=== PATIENT | female | born 1960 | race Caucasian/White ===

== ENCOUNTER → 2017-03-31 | Day surgery (SDC) | payer OTHER ==
[~2017-03-31] MED LIST: BUPROPION XL150 MG PO; HYDROCHLOROTHIA25 MG PO; LIPITOR20 MG PO; LOSARTAN POTASS50 MG PO; MAPAP ARTHRITI650 M1 PO; MOBIC15 MG PO; NEURONTIN300 MG PO; OMEPRAZOLE40 M1 PO; ZYRTEC10 M1 PO
--- NOTE | ~2017-03-31 | OR ---
Unit #: [id number] #: [id number] Patient: ANTHONY BENEDICT [id number] [address] [address] [id number] O MR#: [id number] NAME: ANTHONY BENEDICT ROOM: Date of Procedure: 03/31/2017 Admission Date: 03/31/2017 Surgeon: Tez Gtz M.D. : 1960 Attending Physician: Tez Gtz M.D. OPERATIVE REPORT JOB NOTE: CC: DR. JAZMIN FARIA PREOPERATIVE DIAGNOSIS Hemoccult-positive stools. POSTOPERATIVE DIAGNOSIS Hemoccult-positive stools. PROCEDURES PERFORMED 1. Esophagogastroduodenoscopy. 2. Biopsy of antrum for Helicobacter pylori testing. 3. Attempted colonoscopy to proximal ascending colon. ANESTHESIA Monitored anesthesia care. FINDINGS The patient was found to have moderate duodenitis and distal gastritis on upper endoscopy. The patient was found to have a long tortuous colon; however, we were unable to enter the cecum. The patient had moderate internal hemorrhoids. Lax GE junction. SPECIMENS Sent to pathology. COMPLICATIONS None apparent. CONDITION The patient tolerated the procedure well. INDICATIONS FOR PROCEDURE The patient is a 57-year-old white female, who presents at this time for evaluation by upper and lower endoscopy. She was recently found to have Hemoccult-positive stools. DESCRIPTION OF PROCEDURE After obtaining informed consent, the patient was brought to the endoscopy suite and after adequate monitored anesthesia care, had the endoscope placed through the mouth into the upper esophagus under direct vision. It was advanced to the second portion of the duodenum without difficulty with the lumen always in view. The third portion of the duodenum was normal. Unit #: [id number] #: [id number] Patient: ANTHONY BENEDICT The second portion of the duodenum and duodenal bulb had moderate duodenitis, but no ulcerations were seen. The pylorus was opened normally. There was some moderate diffuse distal gastritis present. A biopsy was obtained for Helicobacter pylori testing. On retroflexion back to the GE junction, there was a lax GE junction. No other abnormalities were found in the proximal third, middle third, or incisura. On pulling back above the GE junction, there was no stenosis, stricture, or neoplasm seen. There was no significant esophagitis. The remaining portion of the esophagus was within normal limits. Laryngeal structures were grossly normal as viewed from above. At this point in time, the colonoscope was placed through the anus and slowly advanced to the proximal ascending colon without difficulty with the lumen always in view. The patient had a very long tortuous colon. Despite multiple body position changes and manipulations of the scope, we were unable to enter the cecum itself. As a result, the colonoscope was slowly pulled back and the ascending colon was normal as was the hepatic flexure, transverse colon, splenic flexure, descending colon, sigmoid colon, and rectum. On retroflexing in the rectum to the anorectal junction, the patient was found to have some mild to moderate internal hemorrhoids. The scope was removed without difficulty. The patient tolerated the procedure well and went from the endoscopy suite to recovery area in stable condition. RECOMMENDATIONS Gastroesophageal reflux sheet given. Prescription for omeprazole given. Clear liquid diet today. One bottle of mag citrate later today and then barium enema air contrast in the a.m. for further evaluation of the colon. Dictated by... Marleni Acuña/lashae TD: 03/31/2017 17:35 JOB #: [id number] CC: [facility] OPERATIVE REPORT Page 1 of 1 X Tez Gtz MD X PROCEDURE OPERATIVE NOTE
== END | disposition home or self-care (01) ==
LOC: COPS 11:47
DX: K29.80 Duodenitis without bleeding (principal); K56.2 Volvulus; K29.70 Gastritis, unspecified, without bleeding; K64.8 Other hemorrhoids; I10 Essential (primary) hypertension; E11.9 Type 2 diabetes mellitus without complications; Z88.2 Allergy status to sulfonamides; M19.90 Unspecified osteoarthritis, unspecified site; E78.5 Hyperlipidemia, unspecified; E78.00 Pure hypercholesterolemia, unspecified; F17.210 Nicotine dependence, cigarettes, uncomplicated; Z80.0 Family history of malignant neoplasm of digestive organs; Z79.899 Other long term (current) drug therapy; Z98.51 Tubal ligation status; Z98.890 Other specified postprocedural states
CPT/HCPCS: 82947; 87077

== ENCOUNTER → 2017-04-01 | Outpatient (CLI) | payer OTHER ==
--- NOTE | ~2017-04-01 | CR43 ---
[facility] A Service of [facility] RADIOLOGY TEXT RESULTS PATIENT: ANTHONY BENEDICT LOCATION: [facility] : 60 UNIT #: [id number] AGE: [address]: Tez Gtz MD SEX: F ORDER DR: [id number] [facility] [address] [place], [place] [address] [id number] O MR#: [id number] Acc #: [id number] NAME: ANTHONY BENEDICT : 1960 SEX: F STUDY DATE/TIME: 04/01/2017 9:26 UNIT: [facility] ROOM: STUDY DESCRIPTION: CR Barium Enema W Air Attending Physician: Tez Gtz M.D. Referring Physician: Tez Gtz M.D. Ordering Physician: Tez Gtz M.D. MEDICAL IMAGING REPORT This report is preliminary unless electronic signature is present EXAM Barium enema double-contrast technique 04/01/2017 INDICATIONS Recent incomplete colonoscopy. Hemoccult positive stool. Left lower quadrant pain. Recent onset of pain symptoms and hemoccult positive stool in the past 3 months. TECHNIQUE Following a gravity prospector radiograph of the abdomen, multiple spot fluoroscopic views of the colon and rectum were obtained in various positions after the uneventful gravity installation of a liquid barium contrast material. COMPARISON STUDIES No comparison studies. FINDINGS Notes indicate that approximately 5.3 minutes of fluoroscopy time was used in the case. 16 spot fluoroscopic views from the procedure were saved to the PACS system. Wharf [place] image demonstrates probable vascular calcifications in the pelvis. No dilated air-filled loops of bowel. The enema tip was inserted into the rectum and the balloon inserted under fluoroscopic surveillance. It was seen to be in good position. [place] installation of barium commenced. There was complete filling of the colon and opacification of the appendix. 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 There was no impediment contrast passage. Significant portions of the colon were obscured from view by double-contrast technique secondary to incomplete gaseous distension. These were the best images possible. There is no distinct filling defect to suggest a focal mass. There is a tortuous sigmoid colon and splenic flexure. Overhead images were also obtained and demonstrate no additional finding. [facility] A Service of [facility] RADIOLOGY TEXT RESULTS PATIENT: ANTHONY BENEDICT LOCATION: [facility] : 60 UNIT #: [id number] AGE: [address]: Tez Gtz MD SEX: F ORDER DR: IMPRESSION 1. Negative air-contrast barium enema. No focal filling defect to suggest mass or stricture encountered. Portions of the colon could not be adequately visualized with air-contrast technique given significant retention of the barium column. These were the best images possible. 2. The appendix is normal. 3. Notes indicate 5.3 minutes of fluoroscopy time was used in the case. 16 spot fluoroscopic views from the procedure were saved to the DR PACS. Dictated by... Scott Ramirez M.D. THIS IS AN ELECTRONICALLY VERIFIED REPORT Scott Ramirez M.D. at 04/02/2017 7:12 AM Araceli TD: 04/01/2017 19:52 JOB #: [id number] MEDICAL IMAGING REPORT Page 1 of 1 COPY
== END | disposition home or self-care (01) ==
LOC: CRAD 07:39
DX: R19.5 Other fecal abnormalities (principal)
CPT/HCPCS: 74280